=== PATIENT | female | born 1945 | race Caucasian/White ===

== ENCOUNTER → 2021-10-04 03:00 | Outpatient (CLI) | payer MEDICARE, SELFPAY ==
[2021-10-04 17:38] LABS: SARS-CoV-2 RNA PCR Negative
== END ==
PROVIDERS: PCP Pediatrics; Visit Provider Plastic Surgery
DX: Z01.812 Encounter for preprocedural laboratory examination (principal); Z20.822 Contact with and (suspected) exposure to COVID-19
CPT/HCPCS: C9803; U0003; U0005

== ENCOUNTER 2021-10-04 08:24 | Outpatient (CLI) | payer MEDICARE, SELFPAY ==
[2021-10-04 09:22] LABS: Anion Gap 5 mmol/L (8-16); Blood Urea Nitrogen 20 mg/dL (7-17); Calcium 9.3 mg/dL (8.4-10.2); Carbon Dioxide 29 mmol/L (22-30); Chloride 102 mmol/L (98-107); Estimated Glomerular Filt Rate 48; Glucose 119 mg/dL (65-110); Potassium 3.5 mmol/L (3.4-5.0); Sodium 136 mmol/L (137-145)
== END 2021-10-04 08:25 | disposition home or self-care (01) ==
LOC: ANHSURGERY 08:29
PROVIDERS: Anesthesiology; PCP Pediatrics; Visit Provider Plastic Surgery
DX: Z01.818 Encounter for other preprocedural examination (principal); I10 Essential (primary) hypertension
CPT/HCPCS: 36415; 80048

== ENCOUNTER 2021-10-07 00:28 | Day surgery (SDC) | payer MEDICARE, SELFPAY ==
--- NOTE | 2021-09-29 15:41 | PC.NURSE ---
Report to the Outpatient Waiting Room, entrance under the green pavilion located off [facility], at time __729 on date _10/07/21 . OR Time: . - You and your visitor will be asked a series of questions to screen for COVID 19 for your protection. - A mask is required within the hospital. - Only one visitor is allowed at this time. Patient visitors will be guided where to wait when not with patient. Preoperative COVID Testing Requirements: No COVID Test needed if: (proof is required; if not received patient will have Rapid Test prior to entry) COVID TESTING 10/04/21 AT 0920 - Patient has received COVID Vaccine at least 14 days prior to procedure date or - Patient has positive COVID test result within last 90 days of surgery date. COVID Test needed if above criteria is not met If not COVID vaccinated a COVID test must be conducted within 72 hours of surgery and patient is asked to isolate self from time of testing until procedure. You will go to the [facility] for your COVID testing. The [facility] is located at the corner of [address] [facility]. You will only be called if COVID results are positive and your surgeon may reschedule your elective surgery date. Patients may have clear liquids (water, carbonated beverages, clear teas, apple juice) until 3 hours prior to surgery with a maximum of 20 ounces. - No food from midnight until time of surgery - Infants may have breast milk until 4 hours before surgery, infant formula 6 hours prior to surgery. - Children will be allowed to drink immediately following surgery. If applicable, please bring a bottle or sippy cup to assist with drinking. Juice, water, soda, and popsicles are readily available. For infants on formula, please bring formula the day of surgery. Pacifiers are allowed. Take the following medications with a SIP of water the morning of surgery: __NONE Medications to discontinue per physician __ALL VITAMINS AND SUPPLEMENTS 3 DAYS PRE OP Date to take last dose___10/03/21 Please no make-up, nail angolan, hairspray, perfume, deodorant, or body powder the day of surgery. No jewelry (including any body piercings) or valuables the day of surgery, leave them at home. Please take a shower or bath the night before, or the morning of, surgery with an antibacterial soap. Wear comfortable, loose fitting clothing. Children are encouraged to wear pajamas. - Jewelry must be removed prior to entering the operating room. Rings and piercings that are not removed may be cut off. - The hospital will not accept responsibility for valuables. - Please leave all valuables, including medications, at home the day of surgery. If you are going home after surgery, a licensed service parts driver must drive you home. - NO public transportation without another adult. - We recommend that an adult stay with you for 24 hours following discharge. - We also recommend that you do not drive, make important decision, drink alcoholic beverages, or take any drugs that were not prescribed by your health care provider for at least 24 hours after your discharge time. Follow any additional instructions given to you from your surgeon. Telephone instructions given to _PATIENT and asked if any additional questions and then verbalized understanding. Patient advised to call surgeon office or pre surgery nurse liaison [phone] if any additional questions.
[2021-09-29 15:50] VITALS: BMI 27.4
[2021-10-07] MEDS: LACTATED RINGERS 1,000 ML 30 ML IV CONT ×2 (08:05→10:05)
--- NOTE | 2021-10-07 08:23 | WPDHPUPDATE1 ---
History and Physical Update Update Date/Time: 10/07/21 08:23 History and Physical has been reviewed, including an updated exam of the patient. There are NO changes in the patient's condition. Risks, benefits, and alternatives have been discussed and questions answered. Patient agrees to proceed with procedure.
--- NOTE | 2021-10-07 08:35 | WPDANESEPPF ---
Anes - Initial Pre Proc Eval Procedure: Operation Date: 10/07/21 09:30 Proposed Procedures p Excision Neoplasm Right Upper Medial Cheek with Frozen Section - Ken Mccarthy MD Date/Time: 10/07/21 08:35 Surgeon: Ken Mccarthy MD Pre Op Diagnosis: susp skin CA right upper medial cheek Patient Data Age: 75 Gender: F Height: 1.65 m Weight: 74.85 kg Allergies Allergy/AdvReac Type Severity Reaction Status Date / Time Sulfa (Sulfonamide AdvReac Mild Itching Verified 10/07/21 08:03 Antibiotics) AND HIVES Home Medications Medication Instructions Recorded Confirmed Type Ca carb-D3-mag [id number]-Zn 1 tablet PO DAILY 09/29/21 10/07/21 History [Caltrate + D3 Plus Minerals] amlodipine 5 mg PO HS 09/29/21 10/07/21 History ascorbic acid (vitamin C) 500 mg PO DAILY 09/29/21 10/07/21 History aspirin [Adult Low Dose Aspirin] 81 mg PO 3XW 09/29/21 10/07/21 History atorvastatin 10 mg PO DAILY 09/29/21 10/07/21 History kbgeifb-ccpfntrng-esdn 1 tablet PO DAILY 09/29/21 10/07/21 History cholecalciferol (vitamin D3) 25 mcg PO DAILY 09/29/21 10/07/21 History glucosamine sulfate [Glucosamine] 500 mg PO DAILY 09/29/21 10/07/21 History hydrochlorothiazide 25 mg PO DAILY 09/29/21 10/07/21 History omeprazole 20 mg PO DAILY 09/29/21 10/07/21 History vitamin B complex 1 cap PO DAILY 09/29/21 10/07/21 History Patient hx anesthesia problems: none Family hx anesthesia problems: none Results Review: All pre-operative results and documents have been reviewed as part of the pre-operative evaluation. FORMERLY [facility], [facility] Past Medical History Medical History (Updated 10/07/21 @ 08:35 by Paul Collazo MD) Breast CA GERD (gastroesophageal reflux disease) Hyperlipidemia Hypertension Social History Social History Smoking status: Never smoker Living arrangements: alone Spiritual care concerns: No Anes - Eval Final PreProcedure Day of Procedure 10/07/21 08:35 Patient weight: overweight Heart: regular rate and rhythm Lungs: clear to auscultation Airway: Mallampati scale class 1 Neurological: alert and oriented Last oral intake: >/= 8 hours ASA classification: III Emergent: no Anesthetic plan: proceed Anesthesia type and monitoring: general LMA and standard monitoring Results Review: All pre-operative results and documents have been reviewed as part of the pre-operative evaluation. Informed Consent: The patient's anesthetic plan and its attendant risks and benefits were discussed with the patient/family/POA. Questions were solicited and answers provided to the satisfaction of the patient/family/POA.
[2021-10-07 08:58] VITALS: BP 165/66; PULSE 70; RESP 20; TEMP 36.5; O2SAT 100
[2021-10-07] MEDS: BALANCED SALT SOLN OPHTH IRRIG 30 ML BTL EACH EYE (09:40)
[2021-10-07] MEDS: LIDO 1%/EPINEPHRINE/PF 1:200,000 30 ML VIAL INFILTRATE (09:41)
[2021-10-07] MEDS: BACITRACIN OP OINT 3.5 GM TUBE 1 APPLIC RIGHT EYE (09:48)
[2021-10-07 10:05] VITALS: BP 126/67; PULSE 64; RESP 12; TEMP 36.1; O2SAT 100
[2021-10-07 10:20] VITALS: BP 135/64; PULSE 60; RESP 18; O2SAT 100
--- NOTE | 2021-10-07 10:21 | SUR.PHASEI ---
Simple mask removed at 1020.
[2021-10-07 10:35] VITALS: BP 136/70; BP 154/63; PULSE 62; PULSE 79; RESP 16; RESP 18; O2SAT 96
[2021-10-07 11:05] VITALS: BP 138/59; PULSE 70; RESP 16
--- NOTE | 2021-10-07 11:58 | P.OP_ITS ---
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 She was taken to the operating room and placed supine operating table. A time-outw as held confirmed. She was given IV sedation. The face was prepped and draped in usual fashion the site was carefully examined and marked for excision. This was then locally infiltrated with 1% lidocaine with epinephrine. The excision was carried out through full-thickness of skin. The nasal aspect was marked with a suture for the pathologist orientation. It was sent for frozen section. The report is basal cell carcinoma with margins free. Closure at this involved undermining close to a cm in several directions and elevating a tissue advancement flap from the lower eyelid. The incision was carried along the lower eyelid about 5 mm from the truong line extending about alf across the eyelid. This was undermined and advanced carefully taking caution not to alyssa the lid. The wound was closed with interrupted 5 0 fast- absorbing gut and 6 0 nylon. Couple of 5 0 Vicryl intradermal sutures were placed as well and these were attached to the deep underlying margin. There was no significant deformity in the lid at that point and I believe the 1 to 2 mm of displacement of the lower punctum from the globe will relax. The patient is discharged with a prescription for cephalexin and hydrocodone. Estimated Blood Loss 2 Drains No Packing No Pathology yes Complications No immediate complications Condition stable Disposition PACU
== END 2021-10-07 11:22 | disposition home or self-care (01) ==
PROVIDERS: PCP Pediatrics; Visit Provider Plastic Surgery
PROC: (CPT 14040; principal; 2021-10-07 09:30)
DX: C44.319 Basal cell carcinoma of skin of other parts of face (principal); I10 Essential (primary) hypertension; E78.5 Hyperlipidemia, unspecified; K21.9 Gastro-esophageal reflux disease without esophagitis; Z85.3 Personal history of malignant neoplasm of breast; Z79.82 Long term (current) use of aspirin
CPT/HCPCS: 14040; 36415; 80048; 88305; 88331; A9270; C9803; J1100; J2370; J2405; J2704; J3010; J7120; U0003; U0005